=== PATIENT | male | born 1945 | race Caucasian/White ===

== ENCOUNTER → 2017-03-08 | Outpatient (CLI) | payer MEDICARE, BC ==
[2017-03-08] VITALS (11 sets, daily range): BP systolic 99–129; BP diastolic 66–85
[~2017-03-08] VITALS: Ht 170.2 cm; Wt 86.2 kg
[~2017-03-08] MED LIST: ACET500T68 PO; FLONASE; FLUOROURACIL; LIDOCAINE 1% / SOD BICARB 8.4% 20 ML VIAL. IJ ONE; MIDAZOLAM HCL/PF 5 MG/5 ML VIAL. IV ONE; MIDAZOLAM HCL/PF 5 MG/5 ML VIAL. ONE; MONT10TA9 PO; MULT1TAB52 PO; OMEP20TA63 PO; PRED10DR EACHEYE; SILD100T PO; SILO8CAP PO; fentaNYL PF VIAL 250 MCG/5 ML VIAL IV ONE; fentaNYL PF VIAL 250 MCG/5 ML VIAL ONE; vitamin c
[2017-03-08 07:43] LABS: BASO # 0.1 x10^3/uL (0.0-0.2); BASO % 1 % (0-3); EOS % 2 % (0-3); HEMATOCRIT 40.7 % (39.0-53.0); HEMOGLOBIN 14.3 g/dL (13.0-17.5); LYMPH # 2.5 x10^3/uL (1.0-4.8); LYMPH % 35 % (24-48); MEAN CORPUSCULAR HEMOGLOBIN 29 pg (25-35); MEAN CORPUSCULAR HGB CONC 35 g/dL (31-37); MEAN CORPUSCULAR VOLUME 84 fL (79-100); MONO % 7 % (0-9); NEUT % 55 % (31-73); PLATELET COUNT 144 x10^3/uL (140-400); RED BLOOD COUNT 4.86 x10^6/uL (4.30-5.70); RED CELL DISTRIBUTION WIDTH 15.4 % (11.5-14.5); WHITE BLOOD COUNT 7.2 x10^3/uL (4.0-11.0)
[2017-03-08 07:47] LABS: CALCIUM 9.1 mg/dL (8.5-10.1); GFR 74.1; POTASSIUM 4.3 mmol/L (3.5-5.1)
[2017-03-08 07:49] LABS: PROTHROMBIN TIME PATIENT 12.2 SEC (11.7-14.0)
--- NOTE | 2017-03-08 08:56 | PDOC ---
MODERATE SEDATION ASSESSMENT RISKS/ALTERNATIVES Risks/Alternatives Risks and alternatives of this type of sedation and procedure discussed with: RISK/ALTERNATIVES: Patient H & P ON CHART H & P H & P on chart and reviewed for co-morbid conditions and appropriate labs. H&P ON CHART: Yes STATUS PREG STATUS ASSESSED: N/A MEDS/ALLERGIES REVIEWED Meds/Allergies Reviewed Medications and Allergies including time and route of recently administered narcotics and sedatives. MEDS/ALLERGIES REVIEWED: Yes ASA RATING ASA RATING: II AIRWAY ASSESSMENT Airway Assessment Airway patency, oral function limitations, presence of caps, crowns, dentures, partials, and ability to extend neck assessed. AIRWAY ASSESSMENT: Yes MALLAMPATI SCORE MALLAMPATI SCORE: II PRE-SEDATION ASSESSMENT PRE-SEDATION ASSESSMENT: Yes LEON RODRÍGUEZ MD March 08, 2017 08:56
--- NOTE | 2017-03-08 09:03 | PDOC1 ---
History and Physical Date of Procedure Date of Admission 03/08/[address] guided bone marrow asp/bx Indication Indication 71 YO male with new dx follicular lymphoma----staging Bone marrow aspirate has been requested. Past Medical History Past Medical History See Nursing Pre procedure PMH Past Surgical History Past Surgical History See Nursing Pre procedure PSH Current Medications Current Medications Current Medications Lidocaine/Sodium Bicarbonate (Buffered Lidocaine 1%) 20 ml STK-MED ONCE IJ ; Start 03/08/17 at 07:49; Stop 03/08/17 at 07:50; Status DC Midazolam HCl (Versed) 5 mg STK-MED ONCE .ROUTE ; Start 03/08/17 at 08:12; Stop 03/08/17 at 08:13; Status DC Fentanyl Citrate (Fentanyl 5ml Vial) 250 mcg STK-MED ONCE .ROUTE ; Start at 08:12; Stop 03/08/17 at 08:13; Status DC Lidocaine/Sodium Bicarbonate (Buffered Lidocaine 1%) 20 ml 1X ONCE IJ Last administered on 03/08/17 08:30; Start 03/08/17 at 08:30; Stop 03/08/17 at 08:31 ; Status DC Midazolam HCl (Versed) 5 mg 1X ONCE IV Last administered on 03/08/17 08:41; Start 03/08/17 at 08:30; Stop 03/08/17 at 08:31; Status DC Fentanyl Citrate (Fentanyl 5ml Vial) 250 mcg 1X ONCE IV Last administered on 08:40; Start 03/08/17 at 08:30; Stop 03/08/17 at 08:31; Status DC Active Scripts Active Reported [fluorouracil] Viagra (Sildenafil Citrate) 100 Mg Tablet 100 Mg PO ONCE Acetaminophen 500 Mg Tablet 500 Mg PO PRN Omnipred (Prednisolone Acetate) 10 Ml Drops.susp 1 Drop EACHEYE TID [flonase spray ] [vitamin c] 240 mg DAILY Multivitamins (Multivitamin) 1 Each Tablet 1 Tab PO DAILY Prilosec Otc (Omeprazole Magnesium) 20 Mg Tablet.dr 20 Mg PO DAILY Rapaflo (Silodosin) 8 Mg Capsule 1 Cap PO DAILY Montelukast Sodium Tablet (Montelukast Sodium) 10 Mg Tablet 10 Mg PO HS Allergies Allergies: Coded Allergies: tetracycline (Verified Allergy, Intermediate, 03/08/17) Physical Exam Vital Signs Vital Signs Date Time Temp Pulse Resp B/P (MAP) Pulse Ox O2 Delivery O2 Flow Rate FiO2 03/08/17 08:50 76 12 93 Nasal Cannula 2.0 03/08/17 07:45 98.4 129/84 (99) 98.4 Lungs: Clear to auscultation Heart: Regular rate Psych/Mental Status: Mental status NL Assessment Assessment New diagnosis follicular lymphoma Problems: Plan Plan CT guided staging bone marrow asp/bx LEON RODRÍGUEZ MD March 08, 2017 09:03
--- NOTE | 2017-03-08 09:08 | PDOC ---
Exam Bag Loader Bag Loader Christi Pre-Procedure Diagnosis Pre-Procedure Diagnosis 71 YO male with follicular lymphoma Post-Procedure Diagnosis Post-Procedure Diagnosis Same Procedure Performed Procedure Performed Staging CT guided bone marrow asp/bx Type of Anesthesia Type of Anesthesia Local + Mod sedation Estimated Blood Loss EBL: Minimal Specimens Specimans 6 cc bone marrow aspirate + 1 11G core bx-----to heme-path Condition of Patient Condition of Patient Stable. No apparent complication. Disposition Disposition Home from [facility] post recovery, if no problems. F/u with Dr Drake. Full report to follow. LEON RODRÍGUEZ MD March 08, 2017 09:08
--- NOTE | 2017-03-09 09:42 | RAD ---
CT-guided power drill assisted bone marrow aspiration and biopsy Indication: 71-year-old male with new diagnosis of follicular lymphoma. Staging bone marrow aspirate/biopsy has been requested by oncology. Anesthesia: 15 minutes moderate sedation provided utilizing a total of 3 mg Versed and 150 mcg fentanyl, IV. The patient was appropriately monitored by a qualified independent observer throughout the time of moderate sedation. Procedure: Informed consent was obtained from the patient. He was placed prone on the CT scanner. Preliminary noncontrast CT images were obtained through pelvis. A left posterior skin site suitable for CT-guided bone marrow aspirate/biopsy from posterior left iliac bone was selected and marked. That area was prepped and draped in the usual sterile fashion. Conscious sedation was provided with IV Versed and fentanyl. Using aseptic technique, local anesthesia, and CT guidance, and the [employer] power trencher driver, successful percutaneous entry was achieved through posterior cortex of left iliac bone. Approximately 6 cc of bone marrow was promptly aspirated, and was submitted to hematology personnel in the CT suite. Using CT guidance, the [employer] power trencher driver was then utilized to obtain a single, 11-gauge core biopsy sample from marrow cavity of left iliac bone. Touch preparations were made from the core biopsy sample, which was then submitted to pathology in formalin. A sterile dressing was applied over the biopsy skin puncture site. Patient tolerated the procedure well without apparent complication. Impression: Successful, uneventful CT-guided bone marrow aspirate and biopsy, utilizing the [employer] power trencher driver biopsy system, as described. PQRS compliance statement: One or more of the following individualized dose reduction techniques were utilized for this CT procedure: 1. Automated exposure control. 2. Adjustment of MA and/or KV according to patient size. 3. Iterative reconstruction technique.
== END | disposition home or self-care (01) ==
LOC: INTRAD 06:59
PROVIDERS: ATTEND Internal Medicine Hematology & Oncology
DX: C82.90 Follicular lymphoma, unspecified, unspecified site (principal); I10 Essential (primary) hypertension; J45.909 Unspecified asthma, uncomplicated; Z98.49 Cataract extraction status, unspecified eye; E78.00 Pure hypercholesterolemia, unspecified; K21.9 Gastro-esophageal reflux disease without esophagitis; M17.0 Bilateral primary osteoarthritis of knee; M16.0 Bilateral primary osteoarthritis of hip
CPT/HCPCS: 36415; 38221; 77012; 80048; 85027; 85610; 88184; 88185; 88237; G0364; J2250; J3010

== ENCOUNTER 2022-01-16 17:24 | Inpatient (IN) | payer MEDICARE, BC ==
[~2022-01-16] VITALS: Ht 170.2 cm; Wt 85.3 kg
[~2022-01-16 17:24] MED LIST changes: -LIDOCAINE 1% / SOD BICARB 8.4% 20 ML VIAL. IJ ONE; -MIDAZOLAM HCL/PF 5 MG/5 ML VIAL. IV ONE; -MIDAZOLAM HCL/PF 5 MG/5 ML VIAL. ONE; +MONT10TA49 PO; -MONT10TA9 PO; +MULT-445 PO; -MULT1TAB52 PO; -SILO8CAP PO; +SILO8CAP2 PO; -fentaNYL PF VIAL 250 MCG/5 ML VIAL IV ONE; -fentaNYL PF VIAL 250 MCG/5 ML VIAL ONE
[2022-01-16 17:29] VITALS: BP 143/92
[2022-01-16 19:17] VITALS: BP 124/89
[2022-01-16 20:00] LABS: BASO # 0.1 x10^3/uL (0.0-0.2); BASO % 1 % (0-3); EOS # 0.1 x10^3/uL (0.0-0.7); EOS % 1 % (0-3); HEMATOCRIT 40.1 % (39.0-53.0); HEMOGLOBIN 13.7 g/dL (13.0-17.5); LYMPH # 1.8 x10^3/uL (1.0-4.8); LYMPH % 28 % (24-48); MEAN CORPUSCULAR HEMOGLOBIN 30 pg (25-35); MEAN CORPUSCULAR HGB CONC 34 g/dL (31-37); MEAN CORPUSCULAR VOLUME 89 fL (79-100); MONO # 0.3 x10^3/uL (0.0-1.1); MONO % 5 % (0-9); NEUT # 4.2 x10^3/uL (1.8-7.7); NEUT % 64 % (31-73); PLATELET COUNT 201 x10^3/uL (140-400); RED BLOOD COUNT 4.51 x10^6/uL (4.30-5.70); RED CELL DISTRIBUTION WIDTH 13.7 % (11.5-14.5); WHITE BLOOD COUNT 6.5 x10^3/uL (4.0-11.0)
[2022-01-16] MEDS ORDERED: FEXO180T81 PO (20:15)
[2022-01-16] MEDS ORDERED: APIX5TAB PO (20:15)
[2022-01-16] MEDS ORDERED: AMIO200T53 PO (20:15)
[2022-01-16] MEDS ORDERED: FINA5TAB4 PO (20:15)
[2022-01-16] MEDS ORDERED: ACET500T68 PO (20:15)
[2022-01-16] MEDS ORDERED: METO-239 PO (20:15)
[2022-01-16] MEDS ORDERED: MONT-38 PO (20:15)
[2022-01-16] MEDS ORDERED: dilTIAZem HCL 125 MG in IV DEXTROSE 5% 100ML 100 ML IV PRN (21:30)
[2022-01-16] MEDS: AMIODARONE HCL 200 MG TABLET. PO SCH (21:35)
[2022-01-16] MEDS: APIXABAN 5 MG TABLET. PO SCH (21:35)
[2022-01-16] MEDS: ACETAMINOPHEN 500 MG TABLET PO PRN (21:36)
--- NOTE | 2022-01-16 21:45 | HP ---
DATE OF SERVICE: 01/16/2022 ADMIT DATE: 01/16/2022 CHIEF COMPLAINT: Tachycardia. HISTORY OF PRESENT ILLNESS: The patient is a pleasant 76-year-old male who has a history of AFib. He was first developed earlier around 01/05. At that time, he underwent a successful cardioversion at [facility]. He has been at home on Eliquis. Tonight, he presented with more tachycardia and appears to be in AFib with RVR. I discussed the case with ER physician at [facility]. He was transferred to our facility. Currently being examined in room 665. We plan on consulting Cardiology. PAST MEDICAL HISTORY: Chronic anticoagulation, recent cardioversion, AFib, polypharmacy, allergic rhinitis, hypertension, arrhythmias, GERD, BPH. ALLERGIES: TETRACYCLINE. FAMILY HISTORY: Coronary artery disease. SOCIAL HISTORY: He does not drink, smoke or take drugs. 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 MEDICATIONS: Reviewed. He is on Hansa, Rapaflo, Eliquis, amiodarone, metoprolol, Tylenol, Singulair, Prilosec, and finasteride. REVIEW OF SYSTEMS: GENERAL: No history of weight change, weakness or fevers. SKIN: No bruising, hair changes or rashes. EYES: No blurred, double or loss of vision. NOSE AND THROAT: No history of nosebleeds, hoarseness or sore throat. HEART: No history of palpitations, chest pain or shortness of breath on exertion. LUNGS: Denies cough, hemoptysis, wheezing or shortness of breath. GASTROINTESTINAL: Denies changes in appetite, nausea, vomiting, diarrhea or constipation. GENITOURINARY: No history of frequency, urgency, hesitancy or nocturia. NEUROLOGIC: Denies history of numbness, tingling, tremor or weakness. PSYCHIATRIC: No history of panic, anxiety or depression. ENDOCRINE: No history of heat or cold intolerance, polyuria or polydipsia. EXTREMITIES: Denies muscle weakness, joint pain, pain on walking or stiffness. PHYSICAL EXAMINATION: VITALS: Within normal limits and are stable. GENERAL: No apparent distress. Alert and oriented. HEENT: Normal cephalic atraumatic, external auditory canals are patent EYES: Extraocular muscles are intact, pupils are equally round and reactive to light and accommodation MUSCULOSKELETAL: Well developed, well nourished, good range of motion ENDOCRINE: No thyromegaly was palpated LYMPHATICS: No cervical chain or axillary nodes were noted HEMATOPOIETIC: No bruising NECK: Supple, no JVD, no thyromegaly was noted. LUNGS: Clear to auscultation in all lung trevizo without rhonchi or wheezing. HEART: He has irregular S1, S2 at 110 beats per minute. ABDOMEN: Soft, nontender. Positive bowel sounds no organomegaly, normal bowel sounds. EXTREMITIES: Without any cyanosis, clubbing, or edema. Pedal pulses intact, Homans sign is negative. NEUROLOGIC: Normal speech, normal tone. A and O x 3, moves all extremities, no obvious focal deficits. PSYCHIATRIC: Normal affect, normal mood. Stable. SKIN: No ulcerations or rashes, good skin turgor, no jaundice. VASCULAR: Good capillary refill, neurovascular bundle appears to be intact. LABORATORY DATA: White count 6, hemoglobin 13, platelets 201. ASSESSMENT AND PLAN: Recurrent atrial fibrillation with rapid ventricular response. The patient is already anticoagulated with Eliquis. We will continue that. We placed him on a Cardizem drip, currently have him at 15 mg an hour. Consult Cardiology. Cardiac monitoring, serial enzymes, serial EKGs, home meds. Deep venous thrombosis prophylaxis. Full code. SABA DR: Elsa TID: [id number]
[2022-01-16 22:37] VITALS: BP 121/67
[2022-01-17 03:07] VITALS: BP 112/67
[2022-01-17 04:39] LABS: CALCIUM 8.4 mg/dL (8.5-10.1); CREATININE 0.9 mg/dL (0.7-1.3); GFR 82.5; POTASSIUM 3.6 mmol/L (3.5-5.1)
[2022-01-17 07:00] VITALS: BP 127/79
[2022-01-17] MEDS: MONTELUKAST SODIUM 10 MG TABLET. PO SCH (08:07)
[2022-01-17] MEDS: FINASTERIDE 5 MG TABLET. PO SCH (08:07)
[2022-01-17] MEDS: PANTOPRAZOLE 40 MG TABLET.DR. PO SCH (08:08)
[2022-01-17] MEDS: AMIODARONE HCL 200 MG TABLET. PO SCH ×2 (08:08→20:05)
[2022-01-17] MEDS: APIXABAN 5 MG TABLET. PO SCH ×2 (08:08→20:05)
[2022-01-17] MEDS: CETIRIZINE HCL 10 MG TABLET. PO SCH (08:09)
[2022-01-17] MEDS: TAMSULOSIN 0.4 MG CAP.ER.24H. PO SCH (08:09)
[2022-01-17] MEDS ORDERED: METOPROLOL SUCC 24HR ER 25 MG TAB.ER.24H. PO SCH (09:00)
--- NOTE | 2022-01-17 09:02 | PDOC2 ---
YOLANDA CALLE INFORMATION SECURITY ASSOCIATE 01/17/22 0902: CARDIAC CONSULT DATE OF CONSULT Date of Consult DATE: 01/17/22 TIME: 09:02 REASON FOR CONSULT Reason for Consult: AFIB with RVR REFERRING PHYSICIAN Referring Physician: Dr. Monsivais SOURCE Source: Chart review, Patient HISTORY OF PRESENT ILLNESS HISTORY OF PRESENT ILLNESS This is a 76 yo male who initially presented to [facility] secondary to rapid heart rate. Patient was diagnosed with AFIB on December 29. Was started on Cardizem and Eliquis. Underwent cardioversion on January 07. Was initiated on metoprolol, amiodarone therapy January 08. Echo reportedly shows LVEF 30-35%. He reports compliance with metoprolol, amiodarone, and Eliquis. Reports heart rate to normally be in the 60 range. Since last , has noted heart rate to be in the 90-100 range. Underwent treadmill stress test this past Monday and was in AFIB. The morning or arrival, heart rate was in the 140-150 range. Patient attempted Valsalva maneuver and carotid massage at home without success so he decided to come to the ED for further evaluation and treatment. Patient was noted in AFIB with RVR upon arrival. Was given dose of adenosine with reported brief pause. AFIB was identified as rhythm slowed. Heart rate quickly returned to RVR and patient was placed on Cardizem gtt. Patient was transferred to [facility] for further evaluation and treatment. Metoprolol was resumed and patient titrate d off Cardizem gtt. HR increased and Cardizem gtt was resume and titrated up to 15mg/hr. HR continues to be mildly elevated. He denies any chest pain, palpitations, dizziness, diaphoresis, or shortness of breath. No recent illness or fevers. PAST MEDICAL HISTORY Cardiovascular: AFIB, HTN, Hyperlipidemia Pulmonary: Asthma GI: GERD Heme/Onc: Other (NHL) Musculoskeletal: Osteoarthritis Renal/: Benign prostatic enlarg. PAST SURGICAL HISTORY Past Surgical History: Cataract Removal FAMILY HISTORY Family History: Hypertension SOCIAL HISTORY Smoke: No ALCOHOL: occassional Drugs: None Lives: with Family CURRENT MEDICATIONS CURRENT MEDICATIONS Current Medications Medications (Trade) Dose Ordered Sig/Nemo Route PRN Reason Start Time Stop Time Status Last Admin Dose Admin Acetaminophen (Tylenol) 1,000 mg PRN Q6HRS PRN PO mild pain or fever 01/16/22 21:00 3/20/22 21:36 Amiodarone HCl (Cordarone) 200 mg BID PO 01/16/22 21:30 01/17/22 08:08 Apixaban (Eliquis) 5 mg BID PO 01/16/22 21:30 01/17/22 08:08 Finasteride (Proscar) 5 mg DAILY PO 01/17/22 09:00 01/17/22 08:07 Metoprolol Succinate (Toprol Xl) 25 mg DAILY PO 01/17/22 09:00 01/17/22 08:08 Montelukast Sodium (Singulair) 10 mg DAILY PO 01/17/22 09:00 01/17/22 08:07 Cetirizine HCl (ZyrTEC) 10 mg DAILY PO 01/17/22 09:00 01/17/22 08:09 Pantoprazole Sodium (Protonix) 40 mg DAILYAC PO 01/17/22 07:30 01/17/22 08:08 Tamsulosin HCl (Flomax) 0.4 mg DAILY PO 01/17/22 09:00 01/17/22 08:09 Diltiazem HCl 125 mg/Dextrose 125 ml @ 5 mls/hr CONT PRN IV PER PROTOCOL 01/16/22 21:30 01/17/22 00:34 ALLERGIES ALLERGIES: Coded Allergies: tetracycline (Verified Allergy, Intermediate, 03/08/17) ROS Review of System 14 point ROS conducted with pertinent positives noted above in HPI PHYSICAL EXAM General: Alert, Oriented X3, Cooperative, No acute distress HEENT: Atraumatic Lungs: Clear to auscultation Heart: Other (AFIB, rate near 115) Abdomen: Soft, No tenderness Extremities: No edema, Normal pulses Skin: No significant lesion Neuro: Normal speech, Normal tone, Sensation intact Psych/Mental Status: Mental status NL, Mood NL MUSCULOSKELETAL: Osteoarthritic changes both hands VITALS/I&O VITALS/I&O: Vital Signs Date Time Temp Pulse Resp B/P (MAP) Pulse Ox O2 Delivery O2 Flow Rate FiO2 01/17/22 08:08 81 127/79 01/17/22 07:00 97.9 17 99 Room Air 97.9 I & O 01/16/22 01/16/22 01/17/22 15:00 23:00 07:00 Intake Total 180 ml 0 ml Output Total 300 ml 1050 ml Balance -120 ml -1050 ml LABS Lab: Laboratory Tests Test 01/16/22 19:35 01/17/22 04:00 White Blood Count 6.5 x10^3/uL (4.0-11.0) Red Blood Count 4.51 x10^6/uL (4.30-5.70) Hemoglobin 13.7 g/dL (13.0-17.5) Hematocrit 40.1 % (39.0-53.0) Mean Corpuscular Volume 89 fL (79-100) Mean Corpuscular Hemoglobin 30 pg (25-35) Mean Corpuscular Hemoglobin Concent 34 g/dL (31-37) Red Cell Distribution Width 13.7 % (11.5-14.5) Platelet Count 201 x10^3/uL (140-400) Neutrophils (%) (Auto) 64 % (31-73) Lymphocytes (%) (Auto) 28 % (24-48) Monocytes (%) (Auto) 5 % (0-9) Eosinophils (%) (Auto) 1 % (0-3) Basophils (%) (Auto) 1 % (0-3) Neutrophils # (Auto) 4.2 x10^3/uL (1.8-7.7) Lymphocytes # (Auto) 1.8 x10^3/uL (1.0-4.8) Monocytes # (Auto) 0.3 x10^3/uL (0.0-1.1) Eosinophils # (Auto) 0.1 x10^3/uL (0.0-0.7) Basophils # (Auto) 0.1 x10^3/uL (0.0-0.2) Sodium Level 140 mmol/L (136-145) Potassium Level 3.6 mmol/L (3.5-5.1) Chloride Level 106 mmol/L (98-107) Carbon Dioxide Level 26 mmol/L (21-32) Anion Gap 8 (6-14) Blood Urea Nitrogen 18 mg/dL (8-26) Creatinine 0.9 mg/dL (0.7-1.3) Estimated GFR (Cockcroft-Gault) 82.5 Glucose Level 93 mg/dL (70-99) Calcium Level 8.4 mg/dL (8.5-10.1) L Laboratory Tests 01/16/22 19:35 Laboratory Tests 01/17/22 04:00 ASSESSMENT/PLAN ASSESSMENT/PLAN 1. AFIB with RVR; new diagnosis earlier this month. s/p CV 01/07/21. amiodarone, metoprolol initiated 01/08 for rate/rhythm control. Eliquis for stroke prophylaxis 2. NICM; LEVF reportedly 30-35% from echo earlier this month. Underwent treadmill MPI last Monday, for which patient reports as normal. 3. Hypertension; controlled 4. Hyperlipidemia 5. GERD 6. H/o NHL Recommendations IV Digoxin x1 now Titrate off Cardizem as not ideal given CMP Resume amiodarone therapy; will increase loading dose to 400mg BID x7 days. Increase metoprolol for better rate control Eliquis for stroke prophylaxis Obtain records from [employer] Consider repeat CV if patient remains in AFIB with elevated rate. Supportive care SANDIE TREVIÑO MD 01/17/22 1821: CARDIAC CONSULT ASSESSMENT/PLAN ASSESSMENT/PLAN Patient seen and examined. Agree with above nurse practitioner note. Discussed case with patient's primary dining room maid at [facility]. Patient has presumable tachycardia mediated cardiomyopathy We will continue amiodarone therapy. Try to wean his diltiazem. If his heart rate is better controlled we will likely discharge if he still has persistent tachyarrhythmia then we will plan for cardioversion. Supportive care. Discussed with patient, his and daughter. YOLANDA CALLE APRN Jan 17, 2022 09:02 SANDIE TREVIÑO MD Jan 17, 2022 18:21
--- NOTE | 2022-01-17 10:26 | PDOC ---
[employer] PROGRESS NOTE Date of Service DOS: DATE: 01/17/22 TIME: 10:23 Chief Complaint Chief Complaint A. fib with RVR Recent cardioversion on January 07 Chronic anticoagulation Hypertension Hyperlipidemia GERD H/o NHL History of Present Illness History of Present Illness 01/17/2022 Patient seen and examined Discussed with RN Chart reviewed Discussed with case management Patient is still in A. fib with a rate of 120 bpm (off Cardizem drip currently due to some bradycardia around 3 this morning) Vitals/I&O Vitals/I&O: Vital Signs Date Time Temp Pulse Resp B/P (MAP) Pulse Ox O2 Delivery O2 Flow Rate FiO2 01/17/22 08:08 81 127/79 01/17/22 07:00 97.9 17 99 Room Air 97.9 I & O 01/16/22 01/16/22 01/17/22 15:00 23:00 07:00 Intake Total 180 ml 0 ml Output Total 300 ml 1050 ml Balance -120 ml -1050 ml Physical Exam General: Alert Heart: Other (Irregular S1-S2) Labs Labs: Laboratory Tests Test 01/16/22 19:35 01/17/22 04:00 White Blood Count 6.5 x10^3/uL (4.0-11.0) Red Blood Count 4.51 x10^6/uL (4.30-5.70) Hemoglobin 13.7 g/dL (13.0-17.5) Hematocrit 40.1 % (39.0-53.0) Mean Corpuscular Volume 89 fL (79-100) Mean Corpuscular Hemoglobin 30 pg (25-35) Mean Corpuscular Hemoglobin Concent 34 g/dL (31-37) Red Cell Distribution Width 13.7 % (11.5-14.5) Platelet Count 201 x10^3/uL (140-400) Neutrophils (%) (Auto) 64 % (31-73) Lymphocytes (%) (Auto) 28 % (24-48) Monocytes (%) (Auto) 5 % (0-9) Eosinophils (%) (Auto) 1 % (0-3) Basophils (%) (Auto) 1 % (0-3) Neutrophils # (Auto) 4.2 x10^3/uL (1.8-7.7) Lymphocytes # (Auto) 1.8 x10^3/uL (1.0-4.8) Monocytes # (Auto) 0.3 x10^3/uL (0.0-1.1) Eosinophils # (Auto) 0.1 x10^3/uL (0.0-0.7) Basophils # (Auto) 0.1 x10^3/uL (0.0-0.2) Sodium Level 140 mmol/L (136-145) Potassium Level 3.6 mmol/L (3.5-5.1) Chloride Level 106 mmol/L (98-107) Carbon Dioxide Level 26 mmol/L (21-32) Anion Gap 8 (6-14) Blood Urea Nitrogen 18 mg/dL (8-26) Creatinine 0.9 mg/dL (0.7-1.3) Estimated GFR (Cockcroft-Gault) 82.5 Glucose Level 93 mg/dL (70-99) Calcium Level 8.4 mg/dL (8.5-10.1) Assessment and Plan Assessmemt and Plan A. fib with RVR Recent cardioversion on January 07 Chronic anticoagulation Hypertension Hyperlipidemia GERD H/o NHL Plan Cardiac monitoring Might need to resume the Cardizem? Will await cardiology input on that Continue metoprolol Continue amiodarone Continue Eliquis Other negative chronotropic agents per cardiology DVT prophylaxis Full code Trend labs Encourage p.o. intake Appreciate cardiology input Comment Review of Relevant I have reviewed the following items dionicio (where applicable) has been applied. Medications: Current Medications Medications (Trade) Dose Ordered Sig/Nemo Route PRN Reason Start Time Stop Time Status Last Admin Dose Admin Acetaminophen (Tylenol) 1,000 mg PRN Q6HRS PRN PO mild pain or fever 01/16/22 21:00 01/16/22 21:36 Amiodarone HCl (Cordarone) 200 mg BID PO 01/16/22 21:30 01/17/22 08:08 Apixaban (Eliquis) 5 mg BID PO 01/16/22 21:30 01/17/22 08:08 Finasteride (Proscar) 5 mg DAILY PO 01/17/22 09:00 01/17/22 08:07 Metoprolol Succinate (Toprol Xl) 25 mg DAILY PO 01/17/22 09:00 01/17/22 08:08 Montelukast Sodium (Singulair) 10 mg DAILY PO 01/17/22 09:00 01/17/22 08:07 Cetirizine HCl (ZyrTEC) 10 mg DAILY PO 01/17/22 09:00 01/17/22 08:09 Pantoprazole Sodium (Protonix) 40 mg DAILYAC PO 01/17/22 07:30 01/17/22 08:08 Tamsulosin HCl (Flomax) 0.4 mg DAILY PO 01/17/22 09:00 01/17/22 08:09 Diltiazem HCl 125 mg/Dextrose 125 ml @ 5 mls/hr CONT PRN IV PER PROTOCOL 01/16/22 21:30 01/17/22 00:34 Justifications for Admission Other Justification A-FIB MAXIMINO GUTIÉRREZ K III DO Jan 17, 2022 10:26
[2022-01-17 10:45] VITALS: BP 161/90
--- NOTE | 2022-01-17 11:24 | NUR ---
SS following for discharge planning. SS reviewed pt chart and discussed with pt RN. Pt is from home with spouse and is currently on room air. Cardiology consulted. Pt on Cardizem drip. Not ready. SS will continue to follow for discharge planning.
[2022-01-17] MEDS ORDERED: DIGOXIN IV 500 MCG/2 ML AMPUL. IV ONE (11:30)
[2022-01-17 15:00] VITALS: BP 126/76
[2022-01-17 19:19] VITALS: BP 116/73
[2022-01-17] MEDS: ACETAMINOPHEN 500 MG TABLET PO PRN (20:08)
[2022-01-17 22:57] VITALS: BP 134/82
[2022-01-18 02:30] VITALS: BP 117/66
[2022-01-18 03:41] VITALS: BP 140/78
[2022-01-18] MEDS ORDERED: METOPROLOL SUCC 24HR ER 50 MG TAB.ER.24H. PO SCH (04:46)
[2022-01-18 06:37] VITALS: BP 129/92
[2022-01-18] MEDS: CETIRIZINE HCL 10 MG TABLET. PO SCH (08:15)
[2022-01-18] MEDS: AMIODARONE HCL 200 MG TABLET. PO SCH (08:15)
[2022-01-18] MEDS: PANTOPRAZOLE 40 MG TABLET.DR. PO SCH (08:16)
[2022-01-18] MEDS: FINASTERIDE 5 MG TABLET. PO SCH (08:16)
[2022-01-18] MEDS: MONTELUKAST SODIUM 10 MG TABLET. PO SCH (08:16)
[2022-01-18] MEDS: TAMSULOSIN 0.4 MG CAP.ER.24H. PO SCH (08:16)
[2022-01-18] MEDS: APIXABAN 5 MG TABLET. PO SCH (08:44)
[2022-01-18] MEDS ORDERED: IV RINGERS,LACTATED 1000ML 1,000 ML IV SCH (10:00)
[2022-01-18] MEDS ORDERED: PROCHLORPERAZINE 10 MG/2 ML VIAL. IVP PRN (10:00)
[2022-01-18] MEDS ORDERED: MORPHINE SULFATE 2 MG/ML INJ. IVP PRN (10:00)
[2022-01-18] MEDS ORDERED: HYDROmorphone 2 MG/ML INJ. IVP PRN (10:00)
[2022-01-18] MEDS ORDERED: fentaNYL PF VIAL 100 MCG/2 ML VIAL IVP PRN ×2 (10:00)
[2022-01-18] MEDS ORDERED: LIDOCAINE 2% TOPICAL JELLY 30GM TUBE. TP ONE (10:15)
[2022-01-18] MEDS ORDERED: LIDOCAINE 2% VISCOUS 15 ML SOLUTION. SWSW ONE (10:15)
[2022-01-18] MEDS ORDERED: BENZOCAINE ONE 20% MUCOSAL SPRAY. MM (10:15)
[2022-01-18] MEDS ORDERED: METOPROLOL IV PUSH 5 MG/5 ML VIAL. IVP ONE (10:45)
--- NOTE | 2022-01-18 10:49 | PDOC ---
Provider Note Date of Service: DATE: 01/18/22 TIME: 10:47 Provider Note Pt is AOx3. Denies any discomfort. HR remains in the 140s atrial flutter. Discussed about synchronized cardioversion, risks and benefits and agreeable to proceed. Justifications for Admission Other Justification A-FIB QUITA DE LA O APRN Jan 18, 2022 10:49
[2022-01-18 10:56] VITALS: BP 134/86
[2022-01-18] MEDS ORDERED: 0.9 % SODIUM CHLORIDE 10 ML DISP.SYRIN. IV PRN (11:00)
[2022-01-18 11:30] VITALS: BP 147/87
--- NOTE | 2022-01-18 12:26 | NUR ---
SS following up with discharge planning. SS reviewed pt chart and discussed with pt RN. Pt is currently on room air. COVID19 negative. Cardiology following. Cardioversion today. SS will continue to follow for discharge planning.
--- NOTE | 2022-01-18 13:18 | PDOC ---
[employer] PROGRESS NOTE Date of Service DOS: DATE: 01/18/22 TIME: 13:14 Chief Complaint Chief Complaint A. fib with RVR Recent cardioversion on January 07 Chronic anticoagulation Hypertension Hyperlipidemia GERD H/o NHL History of Present Illness History of Present Illness Mr Nickerson is a 76 yo male w/ PMHx HTN, HLD, asthma, GERD, non-hodgkins lymphoma, and BPH and atrial fbirllation who initially presented to [facility] secondary to rapid heart rate. Patient was diagnosed with AFIB on December 29. Was started on Cardizem and Eliquis. Underwent cardioversion on January 07. Was initiated on metoprolol, amiodarone therapy January 08. Echo reportedly shows LVEF 30-35%. He reports compliance with metoprolol, amiodarone, and Eliquis. Reports heart rate to normally be in the 60 range. Since last , has noted heart rate to be in the 90-100 range. Underwent treadmill stress test this past Monday and was in AFIB. The morning or arrival, heart rate was in the 140-150 range. Patient attempted Valsalva maneuver and carotid massage at home without success so he decided to come to the ED for further evaluation and treatment. Patient was noted in AFIB with RVR upon arrival. Was given dose of adenosine with reported brief pause. AFIB was identified as rhythm slowed. Heart rate quickly returned to RVR and patient was placed on Cardizem gtt. Patient was transferred to [facility] for further evaluation and treatment. Metoprolol was resumed and patient titrated off Cardizem gtt. HR increased and Cardizem gtt was resume and titrated up to 15mg/hr. HR continues to be mildly elevated. He denies any chest pain, palpitations, dizziness, diaphoresis, or shortness of breath. No recent illness or fevers. 01/17: Patient is still in A. fib with a rate of 120 bpm (off Cardizem drip currently due to some bradycardia around 3 this morning) 01/18: Patient did require 1 dose of digoxin 40 years ago and has been increased 40 mg twice daily of amiodarone 50 mg Toprol-XL and went down for cardiac cardioversion today and spontaneously converted to sinus rhythm. Chest pain or shortness of breath. He has outpatient follow-up with Dr. Pablo. To go home on 40 mg twice daily amiodarone for 7 days then back to 200 mg twice daily and increase Toprol-XL to 50 mg daily and follow-up in 1 week with cardiology. Vitals/I&O Vitals/I&O: Vital Signs Date Time Temp Pulse Resp B/P (MAP) Pulse Ox O2 Delivery O2 Flow Rate FiO2 01/18/22 11:30 98.1 80 20 147/87 99 Room Air 98.1 I & O 01/17/22 01/17/22 01/18/22 15:00 23:00 07:00 Intake Total 360 ml 180 ml 0 ml Output Total 700 ml Balance -340 ml 180 ml 0 ml Physical Exam General: Alert, Oriented X3, Cooperative, No acute distress Heart: Other (AFIB, rate near 115) Abdomen: Soft, No tenderness Extremities: No edema, Normal pulses Skin: No significant lesion Labs Labs: Laboratory Tests Test 01/18/22 09:25 SARS-CoV-2 Antigen (Rapid) Negative (NEGATIVE) Comment Review of Relevant I have reviewed the following items dionicio (where applicable) has been applied. Medications: Current Medications Medications (Trade) Dose Ordered Sig/Nemo Route PRN Reason Start Time Stop Time Status Last Admin Dose Admin Amiodarone HCl (Cordarone) 400 mg BID PO 01/17/22 21:00 01/24/22 09:01 01/18/22 08:15 Metoprolol Succinate (Toprol Xl) 50 mg DAILY PO 01/18/22 04:46 01/18/22 05:02 Justifications for Admission Other Justification A-FIB ARELY DEGROOT MD Jan 18, 2022 13:18
[2022-01-18] MEDS ORDERED: AMIO200T53 PO (13:21)
[2022-01-18] MEDS ORDERED: METO-239 PO (13:21)
--- NOTE | 2022-01-18 13:23 | PDOC3 ---
Discharge Summary Visit Information Date of Admission: Jan 16, 2022 Date of Discharge: Jan 18, 2022 Admitting Diagnosis: Afib with RVR Final Diagnosis Afib with RVR Brief Hospital Course Allergies Allergies Coded Allergies Type Severity Reaction Last Updated Verified tetracycline Allergy Intermediate 03/08/17 Yes Vital Signs Vital Signs Date Time Temp Pulse Resp B/P (MAP) Pulse Ox O2 Delivery O2 Flow Rate FiO2 01/18/22 11:30 98.1 80 20 147/87 99 Room Air 98.1 Lab Results Laboratory Tests Test 01/16/22 19:35 01/17/22 04:00 01/18/22 09:25 White Blood Count 6.5 x10^3/uL (4.0-11.0) Red Blood Count 4.51 x10^6/uL (4.30-5.70) Hemoglobin 13.7 g/dL (13.0-17.5) Hematocrit 40.1 % (39.0-53.0) Mean Corpuscular Volume 89 fL (79-100) Mean Corpuscular Hemoglobin 30 pg (25-35) Mean Corpuscular Hemoglobin Concent 34 g/dL (31-37) Red Cell Distribution Width 13.7 % (11.5-14.5) Platelet Count 201 x10^3/uL (140-400) Neutrophils (%) (Auto) 64 % (31-73) Lymphocytes (%) (Auto) 28 % (24-48) Monocytes (%) (Auto) 5 % (0-9) Eosinophils (%) (Auto) 1 % (0-3) Basophils (%) (Auto) 1 % (0-3) Neutrophils # (Auto) 4.2 x10^3/uL (1.8-7.7) Lymphocytes # (Auto) 1.8 x10^3/uL (1.0-4.8) Monocytes # (Auto) 0.3 x10^3/uL (0.0-1.1) Eosinophils # (Auto) 0.1 x10^3/uL (0.0-0.7) Basophils # (Auto) 0.1 x10^3/uL (0.0-0.2) Sodium Level 140 mmol/L (136-145) Potassium Level 3.6 mmol/L (3.5-5.1) Chloride Level 106 mmol/L (98-107) Carbon Dioxide Level 26 mmol/L (21-32) Anion Gap 8 (6-14) Blood Urea Nitrogen 18 mg/dL (8-26) Creatinine 0.9 mg/dL (0.7-1.3) Estimated GFR (Cockcroft-Gault) 82.5 Glucose Level 93 mg/dL (70-99) Calcium Level 8.4 mg/dL (8.5-10.1) SARS-CoV-2 Antigen (Rapid) Negative (NEGATIVE) Laboratory Tests Test 01/18/22 09:25 SARS-CoV-2 Antigen (Rapid) Negative (NEGATIVE) Brief Hospital Course Mr Nickerson is a 76 yo male w/ PMHx HTN, HLD, asthma, GERD, non-hodgkins lymphoma, and BPH and atrial fbirllation who initially presented to [facility] secondary to rapid heart rate. Patient was diagnosed with AFIB on December 29. Was started on Cardizem and Eliquis. Underwent cardioversion on January 07. Was initiated on metoprolol, amiodarone therapy January 08. Echo reportedly shows LVEF 30-35%. He reports compliance with metoprolol, amiodarone, and Eliquis. Reports heart rate to normally be in the 60 range. Since last , has noted heart rate to be in the 90-100 range. Underwent treadmill stress test this past Monday and was in AFIB. The morning or arrival, heart rate was in the 140-150 range. Patient attempted Valsalva maneuver and carotid massage at home without success so he decided to come to the ED for further evaluation and treatment. Patient was noted in AFIB with RVR upon arrival. Was given dose of adenosine with reported brief pause. AFIB was identified as rhythm slowed. Heart rate quickly returned to RVR and patient was placed on Cardizem gtt. Patient was transferred to [facility] for further evaluation and treatment. Metoprolol was resumed and patient titrated off Cardizem gtt. HR increased and Cardizem gtt was resume and titrated up to 15mg/hr. HR continues to be mildly elevated. He denies any chest pain, palpitations, dizziness, diaphoresis, or shortness of breath. No recent illness or fevers. 01/17: Patient is still in A. fib with a rate of 120 bpm (off Cardizem drip currently due to some bradycardia around 3 this morning) 01/18: Patient did require 1 dose of digoxin 40 years ago and has been increased 40 mg twice daily of amiodarone 50 mg Toprol-XL and went down for cardiac cardioversion today and spontaneously converted to sinus rhythm. Chest pain or shortness of breath. He has outpatient follow-up with Dr. Pablo. To go home on 40 mg twice daily amiodarone for 7 days then back to 200 mg twice daily and increase Toprol-XL to 50 mg daily and follow-up in 1 week with cardiology. Consults: Cardiology Problem list: A. fib with RVR Recent cardioversion on January 07 Chronic anticoagulation Hypertension Hyperlipidemia GERD H/o NHL Greater than 30 minutes spent on d/c home with self care, outpatient cardiology f/u Discharge Information Condition at Discharge: Improved Follow Up: Weeks Disposition/Orders: D/C to Home Scheduled Amiodarone Hcl (Amiodarone Hcl) 200 Mg Tablet, 200 MG PO BID for Afib for 90 Days, #180 Ref 3 Prescribed by: ARELY DEGROOT MD on 01/18/22 1321 Apixaban (Eliquis) 5 Mg Tablet, 1 TAB PO BID for prevent blood clots, (Reported) Entered as Reported by: MERLYN JUDD RN on 01/16/222014 Last Action: Continued on 01/16/222100 by MERLYN JUDD RN Fexofenadine Hcl (Hansa Allergy) 180 Mg Tablet, 1 TAB PO DAILY for allergy symptoms, Ref 0 (Reported) Entered as Reported by: MERLYN JUDD RN on 01/16/222014 Last Action: Converted on 01/16/222100 by MERLYN JUDD RN Finasteride (Finasteride) 5 Mg Tablet, 1 TAB PO DAILY for BPH, (Reported) Entered as Reported by: MERLYN JUDD RN on 01/16/222014 Last Action: Continued on 01/16/222100 by MERLYN JUDD RN Metoprolol Succinate (Metoprolol Succinate ( Xl )) 25 Mg Tab.er.24h, 2 TAB PO DAILY for Afib for 90 Days, #180 Ref 3 Prescribed by: ARELY DEGROOT MD on 01/18/22 1321 Montelukast Sodium (Montelukast Sodium) 10 Mg Tablet, 1 TAB PO DAILY for allergies, (Reported) Entered as Reported by: MERLYN JUDD RN on 01/16/222014 Last Action: Continued on 01/16/222100 by MERLYN JUDD RN Omeprazole Magnesium (Prilosec Otc) 20 Mg Tablet.dr, 20 MG PO DAILY, (Reported) Entered as Reported by: ROSALINA BYERS on 03/08/17820 Last Action: Converted on 01/16/222100 by MERLYN JUDD RN Silodosin (Rapaflo) 8 Mg Capsule, 1 CAP PO DAILY, #30 Ref 5 (Reported) Entered as Reported by: ROSALINA BYERS on 03/08/17816 Last Action: Converted on 01/16/222100 by MERLYN JUDD RN Scheduled PRN Acetaminophen (Acetaminophen) 500 Mg Tablet, 2 TAB PO PRN Q6HRS PRN for pain or fever for 15 Days, #60 Ref 0 (Reported) Entered as Reported by: MERLYN JUDD RN on 01/16/222014 Last Action: Continued on 01/16/222100 by MERLYN JUDD RN Justicifation of Admission Dx: Justifications for Admission: Justification of Admission Dx: Yes CHF: Cardiac Arrhythmias ARELY DEGROOT MD Jan 18, 2022 13:23
--- NOTE | 2022-01-18 15:25 | PDOC ---
QUITA DE LA O [employer] 01/18/22 1525: CARDIO Progress Notes Date and Time Date of Service 01/18/2022 Time of Evaluation 1400 Subjective Subjective: No Chest Pain, No shortness of breath, No Palpitations Vitals Vitals Vital Signs Date Time Temp Pulse Resp B/P (MAP) Pulse Ox O2 Delivery O2 Flow Rate FiO2 01/18/22 11:30 98.1 80 20 147/87 99 Room Air 98.1 Weight Weight [ ] Input and Output Intake and Output Intake and Output 01/18/22 06:59 Intake Total 540 ml Output Total 700 ml Balance -160 ml Intake Oral 540 ml Output Urine Total 700 ml # Voids 100 Laboratory Labs Laboratory Tests Test 01/18/22 09:25 SARS-CoV-2 Antigen (Rapid) Negative (NEGATIVE) Physical Exam HEENT: Neck Supple W Full Motion Chest: Symmetric LUNGS: Clear to Auscultation Heart: S1S2, irregularly irregular (Atrila flutter with RVR) Abdomen: Soft N/T Extremities: No Edema, No Calf Tenderness Neurology: alert, oriented, follow commands Other Exams Discussed with e d tech Assessment 1. AFIB with RVR; new diagnosis earlier this month. s/p CV 01/07/21 2. NICM; LVEF reportedly 30-35% from echo earlier this month. Underwent treadmill MPI last Monday, for which patient reports as normal. 3. Hypertension; controlled 4. Hyperlipidemia 5. GERD 6. H/o NHL Recommendations Spontaneous conversion to SR today, Continue toprol and amiodarone 400 mg po bid x1 week then 200 mg daily. Eliquis for stroke prophylaxis Follow up with Dr. Hsu at [facility] cardiology Justicifation of Admission Dx: Justifications for Admission: Justification of Admission Dx: Yes CHF: Cardiac Arrhythmias SANDIE TREVIÑO MD 01/19/22 0814: CARDIO Progress Notes Plan Plan Late entry for 01/18/2022 Patient seen and examined. Agree with above nurse practitioner note. Patient has converted to sinus rhythm with medical therapy. Cardioversion deferred. Okay to discharge. QUITA DE LA O APRN Jan 18, 2022 15:25 SANDIE TREVIÑO MD Jan 19, 2022 08:14
[2022-01-24] MEDS ORDERED: AMIODARONE HCL 200 MG TABLET. PO SCH (21:00)
== END 2022-01-18 14:10 | disposition home or self-care (01) | DRG 310 ==
LOC: 6 SOUTH 17:24
PROVIDERS: ADMIT Internal Medicine; ATTEND Internal Medicine
DX: I48.91 Unspecified atrial fibrillation (principal); E78.5 Hyperlipidemia, unspecified; I10 Essential (primary) hypertension; J45.909 Unspecified asthma, uncomplicated; K21.9 Gastro-esophageal reflux disease without esophagitis; N40.0 Benign prostatic hyperplasia without lower urinary tract symptoms; M19.90 Unspecified osteoarthritis, unspecified site; I42.8 Other cardiomyopathies; Z20.822 Contact with and (suspected) exposure to COVID-19; Z79.01 Long term (current) use of anticoagulants; Z82.49 Family history of ischemic heart disease and other diseases of the circulatory system; Z85.72 Personal history of non-Hodgkin lymphomas
CPT/HCPCS: 36415; 80048; 85025; 87426; 92960; J1160; J3490; J7060; G0378